=== PATIENT | female | born 1975 | race Caucasian/White ===

== ENCOUNTER 2017-05-30 09:32 | Emergency (ER) | payer OTHER ==
[~2017-05-30] VITALS: Ht 154.9 cm; Wt 63.0 kg
[2017-05-30 09:43] VITALS: BP 140/76; Ht 154.9 cm; Wt 63.0 kg
== END 2017-05-30 10:40 | disposition home or self-care (01) ==
LOC: ED 09:32
DX: J01.90 Acute sinusitis, unspecified (principal); J34.89 Other specified disorders of nose and nasal sinuses; I10 Essential (primary) hypertension; J45.909 Unspecified asthma, uncomplicated

== ENCOUNTER 2017-10-10 14:21 | Emergency (ER) | payer OTHER ==
[~2017-10-10] VITALS: Ht 154.9 cm; Wt 64.9 kg
[2017-10-10 14:33] VITALS: Ht 154.9 cm; Wt 64.9 kg
[2017-10-10 16:11] VITALS: BP 136/56
== END 2017-10-10 16:11 | disposition home or self-care (01) ==
LOC: ED 14:21
DX: J30.9 Allergic rhinitis, unspecified (principal); R06.02 Shortness of breath; Z88.5 Allergy status to narcotic agent

== ENCOUNTER 2017-11-12 18:58 | Emergency (ER) | payer OTHER ==
[~2017-11-12] VITALS: Ht 154.9 cm; Wt 64.1 kg
[2017-11-12 19:10] VITALS: Ht 154.9 cm; Wt 64.1 kg
[2017-11-12 21:15] VITALS: BP 135/86
== END 2017-11-12 21:15 | disposition left against medical advice (07) ==
LOC: ED 18:58
DX: G43.909 Migraine, unspecified, not intractable, without status migrainosus (principal); N93.9 Abnormal uterine and vaginal bleeding, unspecified; R11.2 Nausea with vomiting, unspecified; Z88.8 Allergy status to other drugs, medicaments and biological substances; Z88.6 Allergy status to analgesic agent
CPT/HCPCS: J1200; J2765